=== PATIENT | male | born 2000 | race African-American/Black ===

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

== ENCOUNTER 2025-02-04 14:55 | Emergency (ER) | payer OTHER ==
[2025-02-04 15:08] VITALS: BP 156/80; PULSE 99; RESP 18; TEMP 97.3; BMI 36.6
[2025-02-04] MEDS: SODIUM CHLORIDE 1,000 ML IV STA ×2 (16:17→18:44)
[2025-02-04 16:33] LABS: URINE APPEARANCE CLOUDY; URINE BILIRUBIN NEGATIVE (NEGATIVE); URINE COLOR YELLOW; URINE GLUCOSE (UA) NEGATIVE (NEGATIVE); URINE KETONE TRACE (NEGATIVE); URINE LEUK ESTERASE NEGATIVE (NEGATIVE); URINE NITRITE NEGATIVE (NEGATIVE); URINE PROTEIN TRACE (NEGATIVE); URINE UROBILINOGEN 1.0 mg/dL (0.2-1.0)
[2025-02-04 16:45] LABS: GLUCOSE,RANDOM 67.0 mg/dL (74-106); TOT PROT 9.0 g/dl (6.4-8.2)
[2025-02-04 16:46] LABS: CO2 24.0 mmol/L (21-32)
[2025-02-04 16:47] LABS: ALK PHOS 72.0 U/L (40-150)
[2025-02-04 16:50] LABS: SGOT/AST 58.0 U/L (5-34); SGPT/ALT 21.0 U/L (0-55)
[2025-02-04 17:07] LABS: CREATININE 1.95 mg/dL (0.55-1.3)
[2025-02-04 17:12] LABS: ABSOLUTE IMMATURE GRANULOCYTES 0.04 x10^3/uL (0.0-0.031); BASOPHILS # 0.03 x10^3/uL (0.01-0.08); EOSINOPHIL % 0.4 % (0.8-7.0); EOSINOPHILS # 0.05 x10^3/uL (0.04-0.54); MCHC 32.7 g/dl (32.3-36.5); MEAN CELL VOLUME 85.4 fl (79.0-92.2); MEAN PLT VOLUME 9.4 fl (9.4-12.4); MONOCYTE # 0.85 x10^3/uL (0.30-0.82); MONOCYTE % 6.6 % (5.3-12.2); RDW 14.2 % (11.9-15.3)
[2025-02-04 17:35] LABS: GLUCOSE,RANDOM 93.0 mg/dL (74-106)
[2025-02-04 17:36] LABS: TOT PROT 7.8 g/dl (6.4-8.2)
[2025-02-04 17:37] LABS: CO2 23.0 mmol/L (21-32)
[2025-02-04 17:38] LABS: ALK PHOS 68.0 U/L (40-150)
[2025-02-04 17:41] LABS: SGOT/AST 34.0 U/L (5-34); SGPT/ALT 18.0 U/L (0-55)
[2025-02-04 18:12] LABS: CREATININE 1.79 mg/dL (0.55-1.3)
[2025-02-04 19:32] LABS: CREATININE 1.51 mg/dL (0.55-1.3)
== END 2025-02-04 19:42 | disposition home or self-care (01) ==
LOC: JERFT 14:55
PROC: 3E0337Z Introduction of Electrolytic and Water Balance Substance into Peripheral Vein, Percutaneous Approach (ICD-10-PCS; principal; 2025-02-04)
PROC: 3E0337Z Introduction of Electrolytic and Water Balance Substance into Peripheral Vein, Percutaneous Approach (ICD-10-PCS; 2025-02-04)
DX: E86.0 Dehydration (principal); R53.1 Weakness; R53.83 Other fatigue
CPT/HCPCS: 36415; 71046-TC-FY; 80053; 81003; 82550; 82565; 84484; 84520; 85025; 99284-25

== ENCOUNTER 2025-02-22 17:58 | Emergency (ER) | payer OTHER ==
[2025-02-22 18:11] VITALS: BP 130/80; PULSE 98; RESP 20; TEMP 98.2; BMI 35.2
[2025-02-22 19:15] LABS: ABSOLUTE IMMATURE GRANULOCYTES 0.02 x10^3/uL (0.0-0.031); BASOPHILS # 0.03 x10^3/uL (0.01-0.08); EOSINOPHIL % 2.2 % (0.8-7.0); EOSINOPHILS # 0.21 x10^3/uL (0.04-0.54); MCHC 32.4 g/dl (32.3-36.5); MEAN CELL VOLUME 86.0 fl (79.0-92.2); MEAN PLT VOLUME 9.1 fl (9.4-12.4); MONOCYTE # 0.86 x10^3/uL (0.30-0.82); MONOCYTE % 8.9 % (5.3-12.2); RDW 13.7 % (11.9-15.3)
[2025-02-22 19:34] LABS: GLUCOSE,RANDOM 80.0 mg/dL (74-106)
[2025-02-22 19:35] LABS: CO2 23.0 mmol/L (21-32); TOT PROT 7.6 g/dl (6.4-8.2)
[2025-02-22 19:37] LABS: ALK PHOS 66.0 U/L (40-150)
[2025-02-22 19:40] LABS: CREATININE 1.24 mg/dL (0.55-1.3); SGOT/AST 30.0 U/L (5-34); SGPT/ALT 16.0 U/L (0-55)
== END 2025-02-22 20:20 | disposition home or self-care (01) ==
LOC: JERFT 17:58
DX: R07.89 Other chest pain (principal); R51.9 Headache, unspecified; R53.1 Weakness; T59.811A Toxic effect of smoke, accidental (unintentional), initial encounter; Y99.0 Civilian activity done for income or pay
CPT/HCPCS: 36415; 80053; 82550; 84484; 85025; 93005; 93010; 99284-25